=== PATIENT | female | born 1950 | race Caucasian/White ===

== ENCOUNTER 2022-09-23 11:26 | Day surgery (SDC) | payer MEDICARE, OTHER ==
[~2022-09-23] VITALS: Ht 167.6 cm; Wt 57.9 kg
[~2022-09-23 11:26] MED LIST: ASCO500C18 PO; CALC-1051 PO; CALC-793 PO; FISH12002 PO; MAGN500C4 PO
[2022-09-23] MEDS ORDERED: normal saline 1000ml 1,000 ML IV SCH (11:45)
[2022-09-23 11:50] VITALS: BP 144/75
[2022-09-23] MEDS ORDERED: MULT-227 PO (11:54)
[2022-09-23] MEDS ORDERED: IBUP-2417 (11:54)
[2022-09-23 12:06] LABS: BASOPHILS % (AUTO) 0.7 % (0-1); EOSINOPHILS # (AUTO) 0.1 X10'3 (0-0.9); EOSINOPHILS % (AUTO) 1.1 % (0-6); HEMATOCRIT 42.1 % (35.0-45.0); LYMPHOCYTES # (AUTO) 0.9 X10'3 (1.1-4.8); LYMPHOCYTES % (AUTO) 14.2 % (21-51); MEAN CORPUSCULAR HEMOGLOBIN 29.5 PG (27.0-31.0); MEAN CORPUSCULAR HGB CONC 33.2 g/dL (33.0-36.5); MEAN CORPUSCULAR VOLUME 88.9 FL (78-98); MEAN PLATELET VOLUME 7.7 FL (7.4-10.4); MONOCYTES # (AUTO) 0.3 X10'3 (0-0.9); MONOCYTES % (AUTO) 5.7 % (2-12); NEUTROPHILS # (AUTO) 4.7 X10'3 (1.8-7.7); NEUTROPHILS % (AUTO) 78.3 % (42-75); PLATELET COUNT 247 X10'3 (140-440); RED BLOOD COUNT 4.74 X10'6 (4.20-5.60); RED CELL DISTRIBUTION WIDTH 12.8 % (11.5-14.5); WHITE BLOOD COUNT 6.1 X10'3 (4.5-11.0)
[2022-09-23] MEDS ORDERED: FENTANYL CITRATE/PF 50 MCG/1 ML VIAL ONE (14:41)
[2022-09-23] MEDS ORDERED: midazolam 1 mg/ML 2ml injection ONE (14:41)
[2022-09-23] MEDS ORDERED: LIDOcaine 1% 30ml preserv. free vial ONE (14:41)
[2022-09-23] MEDS ORDERED: heparin sodium, porcine/PF 100unit/ml 5ML syringe ONE (14:42)
[2022-09-23 15:47] VITALS: BP 147/72
[2022-09-23 16:02] VITALS: BP 169/97
[2022-09-23 16:15] VITALS: BP 148/69
[2022-09-23 16:30] VITALS: BP 166/86
[2022-09-23 16:45] VITALS: BP 138/77
== END 2022-09-23 16:50 | disposition home or self-care (01) ==
LOC: SSTAY O 11:26
PROVIDERS: ATTEND Radiology Vascular & Interventional Radiology
DX: C50.911 Malignant neoplasm of unspecified site of right female breast (principal); Z79.01 Long term (current) use of anticoagulants; Z79.899 Other long term (current) drug therapy; M19.90 Unspecified osteoarthritis, unspecified site; Z98.890 Other specified postprocedural states
CPT/HCPCS: 36415; 36561; 76937; 77001; 85025; 85610; 99152; 99153; C1769; C1788; C1894; J1642; J2250; J3010; J3490; J7030; A4620